=== PATIENT | female | born 1935 ===

== ENCOUNTER 2024-01-31 21:58 | Outpatient (REF) | payer MEDICARE, BC, SELFPAY ==
--- NOTE | 2024-01-31 17:30 | SKI_PTH ---
PATIENT: Sury Puga LOC: [facility]#:[id number] AGE/SX: 88/F ROOM: RE01/31/[address]: Lorraine Burgess : 1935 BED: DIS: 01/31/2024 SPEC #: [id number] RECD: 02/01/24 12:47 STATUS: JESUS REQ #: [id number] ALBA: 01/31/24 17:[address]: Lorraine Burgess DEPT: Surgical Specimen RECD BY: Helen Young ENTERED: 02/01/24 12:48 SP TYPE: MUNA MAYBERRY DR: Unknown,Unknown Tissues: 1 - SKIN BIOPSY(SHAVE/PUNCH) Procedures: SKIN LEVEL 4 Comments: [id number]
== END 2024-01-31 21:59 | disposition home or self-care (01) ==
LOC: NCHCN 21:58
PROVIDERS: Visit Provider Nurse Practitioner Family
DX: L98.9 Disorder of the skin and subcutaneous tissue, unspecified (principal); C44.619 Basal cell carcinoma of skin of left upper limb, including shoulder
CPT/HCPCS: 88305

== ENCOUNTER 2025-01-29 15:49 | Outpatient (REF) | payer MEDICARE, BC, SELFPAY ==
[2025-01-29 15:34] LABS: EPI 027-NAP1-B1 PRESUMPTIVE NEGATIVE
[2025-01-30 10:29] LABS: Campylobacter PCR Negative (Negative); Shiga Toxin PCR Negative (Negative); Shigella/Enteroinvasive Ecoli Negative (Negative)
[2025-02-08 05:25] LABS: Lactoferrin, Qt, Stool 112.87 mcg/mL (<7.25)
== END 2025-01-29 15:50 | disposition home or self-care (01) ==
LOC: NCHCN 15:49
PROVIDERS: Visit Provider Nurse Practitioner Family
DX: R19.7 Diarrhea, unspecified (principal)
CPT/HCPCS: 83631; 87015; 87269; 87272; 87505